=== PATIENT | male | born 1965 | race African-American/Black ===

== ENCOUNTER 2018-10-08 14:02 | Emergency (ER) | payer MEDICAID ==
[~2018-10-08] VITALS: Ht 177.8 cm; Wt 113.0 kg
[2018-10-08 15:54] LABS: BASOPHILS % 0.6 % (0.0-2.0); EOSINOPHILS % 0.8 % (0.0-5.0); HEMATOCRIT. 42.5 % (42.0-52.0); HEMOGLOBIN. 14.3 g/dL (14.0-18.0); LYMPHOCYTES % 31.4 % (20.0-50.0); MEAN CORPUSCULAR HEMOGLOBIN 25.9 pg (28.0-32.0); MEAN CORPUSCULAR VOLUME 76.7 fL (80.0-94.0); MEAN PLATELET VOLUME 9.3 fl (7.4-10.4); MONOCYTES % 7.8 % (2.0-8.0); NEUTROPHILS % 59.4 % (40.0-76.0); PLATELET 230 x1000/uL (130-400); RED BLOOD CELL COUNT 5.54 mill/uL (4.7-6.1); RED CELL DISTRIBUTION WIDTH 16.3 % (11.6-14.6)
[2018-10-08 15:56] LABS: CHLORIDE 103 mEq/L (98-107)
[2018-10-08] MEDS ORDERED: NITROGLYCERIN OINT 1GM/INCH UDPKT TD ONE (16:30)
[2018-10-08 18:30] VITALS: BP 135/89
== END 2018-10-08 19:38 | disposition left against medical advice (07) ==
LOC: ER 14:24 → EDBEDREQ 16:45 → EDBEDREQTM 16:45 → EDBEDREQ 17:08 → EDBEDREQTM 18:29 → ENRESERV 19:37 → CANRESERV 19:37 → ER 19:38 → CANBEDREQ 22:45
DX: I24.9 Acute ischemic heart disease, unspecified (principal); E11.65 Type 2 diabetes mellitus with hyperglycemia; I10 Essential (primary) hypertension; F12.10 Cannabis abuse, uncomplicated; Z86.73 Personal history of transient ischemic attack (TIA), and cerebral infarction without residual deficits
CPT/HCPCS: 36415; 71045; 83880; 84484; 93005; 99284

== ENCOUNTER → 2020-03-28 | Outpatient (CLI) | payer MEDICAID ==
[~2020-03-28] MED LIST: AMLO10TA4 MT; ASPI-1497 MT; ATOR80TA MT; CARV6.2548 PO; CLOP75TA4 MT; LISI40TA4 MT; METF-816 MT
== END | disposition home or self-care (01) ==
LOC: EDSTATUS 10:34 → LAB 10:38
PROVIDERS: ATTEND Nurse Practitioner
DX: Z20.828 Contact with and (suspected) exposure to other viral communicable diseases (principal)
CPT/HCPCS: 87426